=== PATIENT | female | born 1940 | race Caucasian/White ===

== ENCOUNTER 2020-08-08 07:58 | Emergency (ER) | payer MEDICARE, OTHER ==
[~2020-08-08 07:58] MED LIST: CALCIUM 500-VI1 EACH PO; CEFDINIR300 MG PO; MAGNESIUM250 MG PO; PROBIOTIC1 EAC3 PO; PROTONIX 40MG T40 MG PO; VITAMIN D32000 UNI1 PO
[2020-08-08 08:39] LABS: BASOPHIL 0.5 % (0-2); EOSINOPHIL 2.8 % (0-7); HCT 42.3 % (37.0-47.0); HGB 13.9 g/dl (12.5-16.0); LYMPHOCYTE 24.3 % (15-48); MCH 29.3 pg (25.0-31.0); MCHC 32.9 g/dL (32.0-36.0); MCV 89.1 fL (78.0-100.0); MONOCYTE 6.3 % (0-12); MPV 9.2 fL (6.0-9.5); NEUTROPHIL 65.8 % (41-80); NRBC 0; PLT 175 K/uL (150-400); RBC 4.75 M/uL (4.20-5.40); RDW 13.6 % (11.5-14.0); WBC 6.1 K/uL (4.0-10.5)
[2020-08-08 09:06] LABS: INR 1.02 (0.9-1.2); PROTHROMBIN TIME 12.7 SECONDS (11.4-13.6); PTT 29.1 SECONDS (22.2-34.7)
[2020-08-08 09:18] LABS: ALKALINE PHOSHATASE 59 U/L (46-116); ALT 23 U/L (14-59); AST 18 U/L (15-37); BILIRUBIN - TOTAL 0.4 mg/dL (0.2-1.0); BUN 18 mg/dL (7-18); BUN/CREAT RATIO (CALC) 17.1 RATIO; CHLORIDE 104 mmol/L (98-107); CO2 (BICARBONATE) 29 mmol/L (21-32); CREATININE 1.05 mg/dL (0.51-0.95); GLOBULIN (CALCULATION) 3.4 g/dL; GLUCOSE 109 mg/dL (74-106); TOTAL PROTEIN 7.4 g/dL (6.4-8.2)
[2020-08-08 09:20] LABS: C-REACTIVE PROTEIN < 0.20 mg/dL (<=0.90)
[2020-08-08 09:52] LABS: BILIRUBIN NEGATIVE (NEGATIVE); BLOOD NEGATIVE Ery/uL (NEGATIVE); CLARITY CLEAR (CLEAR); COLOR YELLOW (YELLOW); GLUCOSE (U) NORMAL (NORMAL); LEUKOCYTES NEGATIVE Leu/uL (NEGATIVE); NITRITE NEGATIVE (NEGATIVE); PROTEIN NEGATIVE (NEGATIVE); SPECIFIC GRAVITY 1.015 (1.001-1.030); UROBILINOGEN 0.2 mg/dL (0.2-1.0); pH 6.5 (5.0-9.0)
[2020-08-08 09:58] LABS: BACTERIA TRACE
[2020-08-08] MEDS ORDERED: ONDANSETRON ODT4 MG PO (11:40)
[2020-08-08] MEDS ORDERED: HYDROCODON-ACE1 EAC2 PO (11:40)
[2020-08-08] MEDS ORDERED: MEDROL 4MG DOSEP4 MG PO (11:40)
[2020-08-08] MEDS ORDERED: PERCOCET 7.5/321 TAB PO (12:07)
== END 2020-08-08 12:23 | disposition home or self-care (01) ==
LOC: FER 07:58
PROVIDERS: Emergency Medicine
DX: M47.816 Spondylosis without myelopathy or radiculopathy, lumbar region (principal); K21.9 Gastro-esophageal reflux disease without esophagitis; Z79.899 Other long term (current) drug therapy
CPT/HCPCS: 36415; 72131; 80053; 81001; 85025; 85610; 85730; 86140; J1170; J2405